=== PATIENT | male | born 1995 | race Two or more races ===

== ENCOUNTER → 2019-10-03 | Emergency (ER) | payer OTHER ==
[~2019-10-03] VITALS: Ht 170.2 cm; Wt 88.5 kg
[2019-10-03 14:24] VITALS: BP 128/63
== END | disposition home or self-care (01) ==
LOC: ER 12:37
DX: J18.9 Pneumonia, unspecified organism (principal); F41.9 Anxiety disorder, unspecified
CPT/HCPCS: 71045; 99283; J7030

== ENCOUNTER 2019-10-06 19:04 | Inpatient (IN) | payer OTHER ==
[~2019-10-06] VITALS: Ht 170.2 cm; Wt 86.2 kg
[2019-10-06] MEDS ORDERED: cefTRIAXone SOD 1,000 MG VL IM ONE (20:45)
[2019-10-06] MEDS ORDERED: methylPREDNISolone SOD SUCC 125 MG/2 ML VL IM ONE (20:45)
[2019-10-06] MEDS ORDERED: ACETAMINOPHEN 325 MG TAB PO ONE (20:45)
[2019-10-06] MEDS ORDERED: DOXYCYCLINE 100 MG TAB/CAP PO ONE (21:30)
[2019-10-06] MEDS ORDERED: ASCORBIC ACID 500 MG TAB PO ONE (21:30)
[2019-10-06] MEDS ORDERED: ALBUTEROL SULF 2.5 MG/0.5ML(0.5%) NEB SOLN NEB ONE (21:30)
[2019-10-06] MEDS ORDERED: IPRATROPIUM BROM 0.5 MG/2.5ML INH SOL NEB ONE (21:30)
[2019-10-06] MEDS ORDERED: ZINC SULFATE 220mg CAP or TAB PO ONE (21:30)
[2019-10-06 21:58] LABS: Basophils # (auto) 0 10 ^3/uL (0-0.2); Basophils % (auto) 0.1 % (0.0-2.0); Eosinophils # (auto) 0 10 ^3/uL (0-0.8); Hematocrit 45.7 % (41.0-53.0); Hemoglobin 15.1 g/dL (13.5-17.5); Lymphocytes # (auto) 0.7 10 ^3/uL (0.4-5.4); Lymphocytes % (auto) 4.4 % (10.0-50.0); Mean Corpuscular Hgb Conc. 32.9 g/dL (32.0-36.0); Mean Corpuscular Volume 94.1 fL (80.0-100.0); Monocytes # (auto) 0.4 10 ^3/uL (0-1.3); Monocytes % (auto) 2.6 % (0.0-12.0); Neutrophils # (auto) 15.7 10 ^3/uL (1.6-8.6); Neutrophils % (auto) 92.9 % (37.0-80.0); Nucleated Red Blood Cells % 0.1 %; Platelet Count (auto) 259 10^3/uL (140-450); Red Blood Cells 4.86 10^6/uL (4.5-5.90); Red Cell Distribution Width 13.7 % (11.8-14.3); White Blood Cell 16.9 10^3/uL (4.4-10.8)
[2019-10-06 22:14] LABS: Albumin 2.7 g/dL (3.4-5.0); Anion Gap 5 (5-15); Blood Urea Nitrogen 11 mg/dL (7-18); Calcium 8.9 mg/dL (8.5-10.1); Carbon Dioxide 24 mmol/L (21-32); Chloride 110 mmol/L (98-107); Glucose 162 mg/dL (74-106); Magnesium 2.6 mg/dL (1.6-2.6); Potassium 4.2 mmol/L (3.5-5.1); Sodium 139 mmol/L (136-145)
[2019-10-06 22:22] LABS: Alanine Aminotransferase 48 U/L (16-61); Alkaline Phosphatase 64 U/L (45-117); Aspartate Aminotransferase 34 U/L (15-37); BUN/Creatinine Ratio 10.8; Bilirubin, Total 0.6 mg/dL (0.2-1.0); GFR African American 114 mL/min; GFR Non-African American 94 mL/min; Lactate Dehydrogenase 391 U/L (87-241); Total Protein 8.1 g/dL (6.4-8.2)
[2019-10-06 22:26] LABS: CRP High Sensitivity > 19.0 mg/dL (< 0.3)
[2019-10-06 23:19] LABS: INR 1.19 (0.9-1.15); Partial Thromboplastin Time 28.8 sec (23.0-31.2)
[2019-10-06] MEDS ORDERED: SODIUM CHLORIDE 0.9% 1,000 ML IV SCH (23:27)
[2019-10-06] MEDS ORDERED: ACETAMINOPHEN 500 MG TAB PO PRN (23:30)
[2019-10-06] MEDS ORDERED: HYDROcodone-ACET 5/325MG TAB PO PRN (23:30)
[2019-10-06] MEDS ORDERED: LORazepam 0.5 MG TAB PO PRN (23:30)
[2019-10-06] MEDS ORDERED: MORPHINE SULF INJ 2 MG/ML SYRINGE 1ML IV PRN (23:30)
[2019-10-06] MEDS ORDERED: ONDANSETRON HCL 4 MG/2 ML VIAL IV PRN (23:30)
[2019-10-06] MEDS ORDERED: TEMAZEPAM 15 MG CAP PO PRN (23:30)
[2019-10-06] MEDS ORDERED: DOCUSATE SOD 100 MG CAP PO PRN (23:30)
[2019-10-06] MEDS ORDERED: DEXTROSE (50%) 50ML SYRG IV PRN (23:30)
[2019-10-06] MEDS ORDERED: ACETAMINOPHEN 325 MG TAB PO PRN (23:30)
[2019-10-07 00:55] LABS: Urine Bacteria NONE SEEN /hpf (None Seen); Urine Blood Negative /uL (Negative); Urine Mucus FEW (None Seen); Urine Specific Gravity 1.033 (1.001-1.035); Urine WBC 3 /hpf (0 - 3)
[2019-10-07 01:18] LABS: Alcohol, Urine < 3.0 mg/dL (0-10); Amphetamine Screen, Urine NEGATIVE (NEGATIVE); Barbiturate Scree,Urine NEGATIVE (NEGATIVE); Benzodiazephine Screen, Urine NEGATIVE (NEGATIVE); Cannabinoid Screen, Urine NEGATIVE (NEGATIVE); Cocaine Screen, Urine NEGATIVE (NEGATIVE); Opiate Scree,Urine NEGATIVE (NEGATIVE); Phencyclidine Screen, Urine NEGATIVE (NEGATIVE)
[2019-10-07 01:45] VITALS: BP 133/80
[2019-10-07 02:58] VITALS: BP 127/78
[2019-10-07 05:08] VITALS: BP 133/80
[2019-10-07 05:52] LABS: Basophils # (auto) 0 10 ^3/uL (0-0.2); Basophils % (auto) 0.1 % (0.0-2.0); Eosinophils # (auto) 0 10 ^3/uL (0-0.8); Hematocrit 42.9 % (41.0-53.0); Hemoglobin 14.1 g/dL (13.5-17.5); Lymphocytes # (auto) 0.8 10 ^3/uL (0.4-5.4); Lymphocytes % (auto) 5.9 % (10.0-50.0); Mean Corpuscular Volume 94.1 fL (80.0-100.0); Monocytes # (auto) 0.3 10 ^3/uL (0-1.3); Monocytes % (auto) 2.2 % (0.0-12.0); Neutrophils # (auto) 12.4 10 ^3/uL (1.6-8.6); Neutrophils % (auto) 91.8 % (37.0-80.0); Platelet Count (auto) 257 10^3/uL (140-450); Red Blood Cells 4.56 10^6/uL (4.5-5.90); Red Cell Distribution Width 13.5 % (11.8-14.3); White Blood Cell 13.5 10^3/uL (4.4-10.8)
[2019-10-07 06:00] LABS: Albumin 2.4 g/dL (3.4-5.0); BUN/Creatinine Ratio 19.2; Calcium 8.9 mg/dL (8.5-10.1); Magnesium 2.7 mg/dL (1.6-2.6); Potassium 4.5 mmol/L (3.5-5.1)
[2019-10-07] MEDS: ALBUTEROL SULF HFA 90MCG INH 200DOSE IN SCH ×3 (06:00→21:35)
[2019-10-07 06:03] LABS: Bilirubin, Total 0.4 mg/dL (0.2-1.0); Total Protein 7.2 g/dL (6.4-8.2)
[2019-10-07] MEDS: InsuLIN REG 1unit/0.01ml Soln (100units/ml) SC SCH ×2 (07:00→12:33)
[2019-10-07] MEDS: ACCU-CHEK COMFORT CURVE STRIP VI SCH ×4 (07:02→22:16)
[2019-10-07] MEDS ORDERED: ENOXAPARIN SOD 40 MG/0.4 ML SYRINGE SC SCH (10:00)
[2019-10-07] MEDS: ZINC SULFATE 220mg CAP or TAB PO SCH (11:25)
[2019-10-07] MEDS: DOXYCYCLINE 100 MG TAB/CAP PO SCH ×2 (11:26→22:16)
[2019-10-07] MEDS: ASCORBIC ACID 1,000 MG TAB PO SCH (11:26)
[2019-10-07] MEDS ORDERED: DexAMETHasone 4 MG TAB PO ONE (12:15)
[2019-10-07] MEDS ORDERED: FUROSEMIDE 40 MG/4 ML VIAL IV ONE (12:15)
[2019-10-07] MEDS ORDERED: POTASSIUM CHL 10 Meq TABLET PO ONE (12:15)
[2019-10-07 12:35] VITALS: BP 130/70
[2019-10-07] MEDS ORDERED: diphenhdrAMINE HCL 50 MG/1 ML VL IV ONE (15:45)
[2019-10-07] MEDS ORDERED: ACETAMINOPHEN 650 mg PER 20 mL UD PO ONE (15:45)
[2019-10-07] MEDS ORDERED: methylPREDNISolone SOD SUCC 40 MG/ML VL IV ONE (15:45)
[2019-10-07] MEDS ORDERED: TOCILIZUMAB 400 MG in SODIUM CHL 0.9% 80 ML IV ONE (16:00)
[2019-10-07 16:35] VITALS: BP 124/73
[2019-10-07] MEDS ORDERED: REMDESIVIR 200 MG in NS 210ml LOADING DOSE ADULT IV ONE (18:00)
[2019-10-07] MEDS: BUDESONIDE (INHALATION) 180 MCG IH IN SCH (21:35)
[2019-10-07 22:00] VITALS: BP 116/70
[2019-10-07] MEDS ORDERED: InsuLIN REG 1unit/0.01ml Soln (100units/ml) SC SCH (22:00)
[2019-10-07] MEDS: ENOXAPARIN SOD 100 MG/1 ML SYRINGE SC SCH (22:16)
[2019-10-08 05:39] VITALS: BP 122/79
[2019-10-08 06:01] LABS: Calcium 8.7 mg/dL (8.5-10.1); Potassium 4.2 mmol/L (3.5-5.1)
[2019-10-08 06:07] LABS: Albumin 2.5 g/dL (3.4-5.0); BUN/Creatinine Ratio 29.3; Bilirubin, Total 0.5 mg/dL (0.2-1.0); Total Protein 7.6 g/dL (6.4-8.2)
[2019-10-08] MEDS: ACCU-CHEK COMFORT CURVE STRIP VI SCH ×2 (06:42→12:05)
[2019-10-08] MEDS: ALBUTEROL SULF HFA 90MCG INH 200DOSE IN SCH ×3 (06:43→21:51)
[2019-10-08] MEDS ORDERED: methylPREDNISolone SOD SUCC 40 MG/ML VL IV ONE (07:45)
[2019-10-08] MEDS ORDERED: diphenhdrAMINE HCL 50 MG/1 ML VL IV ONE (07:45)
[2019-10-08] MEDS ORDERED: ACETAMINOPHEN 650 mg PER 20 mL UD PO ONE (07:45)
[2019-10-08] MEDS ORDERED: TOCILIZUMAB 400 MG in SODIUM CHL 0.9% 80 ML IV ONE (08:00)
[2019-10-08] MEDS: FUROSEMIDE 40 MG/4 ML VIAL IV SCH (08:59)
[2019-10-08 09:00] VITALS: BP 115/73
[2019-10-08] MEDS: DOXYCYCLINE 100 MG TAB/CAP PO SCH ×2 (09:00→23:14)
[2019-10-08] MEDS: ASCORBIC ACID 1,000 MG TAB PO SCH (09:00)
[2019-10-08] MEDS: ZINC SULFATE 220mg CAP or TAB PO SCH (09:00)
[2019-10-08] MEDS: ENOXAPARIN SOD 100 MG/1 ML SYRINGE SC SCH ×2 (09:00→23:14)
[2019-10-08] MEDS: POTASSIUM CHL 10 Meq TABLET PO SCH (09:01)
[2019-10-08] MEDS: DexAMETHasone 4 MG TAB PO SCH (09:01)
[2019-10-08] MEDS: BUDESONIDE (INHALATION) 180 MCG IH IN SCH ×2 (10:00→21:51)
[2019-10-08 12:46] VITALS: BP 111/65
[2019-10-08 17:00] VITALS: BP 107/79
[2019-10-08] MEDS ORDERED: REMDESIVIR 100mg in NS 230ml DAILYx4DAYS (NO VENT) IV SCH (17:00)
[2019-10-08 22:00] VITALS: BP 118/78
[2019-10-09 05:00] VITALS: BP 110/63
[2019-10-09] MEDS: ALBUTEROL SULF HFA 90MCG INH 200DOSE IN SCH ×3 (06:54→21:41)
[2019-10-09] MEDS: BUDESONIDE (INHALATION) 180 MCG IH IN SCH ×2 (06:55→21:41)
[2019-10-09 08:35] VITALS: BP 106/65
[2019-10-09 09:05] LABS: Basophils # (auto) 0 10 ^3/uL (0-0.2); Basophils % (auto) 0.2 % (0.0-2.0); Eosinophils # (auto) 0 10 ^3/uL (0-0.8); Eosinophils % (auto) 0.1 % (0.0-7.0); Hematocrit 45.3 % (41.0-53.0); Hemoglobin 15.1 g/dL (13.5-17.5); Lymphocytes # (auto) 2.6 10 ^3/uL (0.4-5.4); Mean Corpuscular Hemoglobin 31.3 pg (28.0-32.0); Mean Corpuscular Hgb Conc. 33.3 g/dL (32.0-36.0); Mean Corpuscular Volume 94.1 fL (80.0-100.0); Monocytes # (auto) 0.7 10 ^3/uL (0-1.3); Neutrophils # (auto) 6.8 10 ^3/uL (1.6-8.6); Neutrophils % (auto) 66.7 % (37.0-80.0); Nucleated Red Blood Cells % 0.1 %; Platelet Count (auto) 364 10^3/uL (140-450); Red Blood Cells 4.81 10^6/uL (4.5-5.90); Red Cell Distribution Width 13.2 % (11.8-14.3); White Blood Cell 10.2 10^3/uL (4.4-10.8)
[2019-10-09 09:25] LABS: Potassium 3.7 mmol/L (3.5-5.1)
[2019-10-09 09:34] LABS: Albumin 2.6 g/dL (3.4-5.0); BUN/Creatinine Ratio 33.8; Bilirubin, Total 0.6 mg/dL (0.2-1.0); Calcium 8.9 mg/dL (8.5-10.1); Total Protein 7.3 g/dL (6.4-8.2)
[2019-10-09] MEDS: ZINC SULFATE 220mg CAP or TAB PO SCH (10:21)
[2019-10-09] MEDS: FUROSEMIDE 40 MG/4 ML VIAL IV SCH (10:21)
[2019-10-09] MEDS: DOXYCYCLINE 100 MG TAB/CAP PO SCH ×2 (10:23→22:10)
[2019-10-09] MEDS: POTASSIUM CHL 10 Meq TABLET PO SCH (10:23)
[2019-10-09] MEDS: DexAMETHasone 4 MG TAB PO SCH (10:23)
[2019-10-09] MEDS: ASCORBIC ACID 1,000 MG TAB PO SCH (10:24)
[2019-10-09] MEDS: ENOXAPARIN SOD 100 MG/1 ML SYRINGE SC SCH ×2 (10:24→22:10)
[2019-10-09 13:00] VITALS: BP 100/64
[2019-10-09 17:00] VITALS: BP 109/64
[2019-10-09] MEDS ORDERED: REMDESIVIR 200 MG in NS 210ml LOADING DOSE ADULT IV ONE (17:00)
[2019-10-09 19:29] VITALS: BP 109/64
[2019-10-09 22:00] VITALS: BP 121/69
[2019-10-10] VITALS (8 sets, daily range): BP systolic 97–123; BP diastolic 51–74
[2019-10-10] MEDS: ALBUTEROL SULF HFA 90MCG INH 200DOSE IN SCH ×3 (07:10→21:50)
[2019-10-10] MEDS: BUDESONIDE (INHALATION) 180 MCG IH IN SCH ×2 (07:11→21:50)
[2019-10-10 07:33] LABS: Basophils # (auto) 0 10 ^3/uL (0-0.2); Basophils % (auto) 0.2 % (0.0-2.0); Eosinophils # (auto) 0 10 ^3/uL (0-0.8); Eosinophils % (auto) 0.2 % (0.0-7.0); Hematocrit 46.4 % (41.0-53.0); Hemoglobin 15.4 g/dL (13.5-17.5); Lymphocytes % (auto) 21.7 % (10.0-50.0); Mean Corpuscular Hemoglobin 31.4 pg (28.0-32.0); Mean Corpuscular Hgb Conc. 33.2 g/dL (32.0-36.0); Mean Corpuscular Volume 94.4 fL (80.0-100.0); Monocytes # (auto) 0.5 10 ^3/uL (0-1.3); Monocytes % (auto) 5.1 % (0.0-12.0); Neutrophils # (auto) 6.6 10 ^3/uL (1.6-8.6); Neutrophils % (auto) 72.8 % (37.0-80.0); Nucleated Red Blood Cells % 0.1 %; Platelet Count (auto) 364 10^3/uL (140-450); Red Blood Cells 4.91 10^6/uL (4.5-5.90); Red Cell Distribution Width 13.6 % (11.8-14.3); White Blood Cell 9.1 10^3/uL (4.4-10.8)
[2019-10-10 07:41] LABS: Potassium 3.9 mmol/L (3.5-5.1)
[2019-10-10 07:47] LABS: Albumin 2.7 g/dL (3.4-5.0); BUN/Creatinine Ratio 29.3; Bilirubin, Total 0.6 mg/dL (0.2-1.0); Calcium 8.7 mg/dL (8.5-10.1); Total Protein 7.2 g/dL (6.4-8.2)
[2019-10-10] MEDS: ZINC SULFATE 220mg CAP or TAB PO SCH (10:13)
[2019-10-10] MEDS: POTASSIUM CHL 10 Meq TABLET PO SCH (10:13)
[2019-10-10] MEDS: FUROSEMIDE 40 MG/4 ML VIAL IV SCH (10:13)
[2019-10-10] MEDS: DexAMETHasone 4 MG TAB PO SCH (10:13)
[2019-10-10] MEDS: DOXYCYCLINE 100 MG TAB/CAP PO SCH ×2 (10:13→21:44)
[2019-10-10] MEDS: ASCORBIC ACID 1,000 MG TAB PO SCH (10:14)
[2019-10-10] MEDS: ENOXAPARIN SOD 100 MG/1 ML SYRINGE SC SCH ×2 (10:14→21:44)
[2019-10-10] MEDS: REMDESIVIR 100mg in NS 230ml DAILYx4DAYS (NO VENT) IV SCH (17:05)
[2019-10-11 05:00] VITALS: BP 105/50
[2019-10-11] MEDS: ALBUTEROL SULF HFA 90MCG INH 200DOSE IN SCH ×3 (06:33→22:54)
[2019-10-11] MEDS: BUDESONIDE (INHALATION) 180 MCG IH IN SCH ×2 (06:33→22:54)
[2019-10-11 09:00] VITALS: BP 85/50
[2019-10-11] MEDS: FUROSEMIDE 40 MG/4 ML VIAL IV SCH (09:51)
[2019-10-11] MEDS: DexAMETHasone 4 MG TAB PO SCH (09:51)
[2019-10-11] MEDS: ZINC SULFATE 220mg CAP or TAB PO SCH (09:51)
[2019-10-11] MEDS: POTASSIUM CHL 10 Meq TABLET PO SCH (09:51)
[2019-10-11] MEDS: ASCORBIC ACID 1,000 MG TAB PO SCH (09:54)
[2019-10-11] MEDS: ENOXAPARIN SOD 100 MG/1 ML SYRINGE SC SCH ×2 (09:54→21:13)
[2019-10-11] MEDS: DOXYCYCLINE 100 MG TAB/CAP PO SCH ×2 (09:54→21:13)
[2019-10-11 13:00] VITALS: BP 96/57
[2019-10-11 16:33] VITALS: BP 122/67
[2019-10-11 16:36] VITALS: BP 110/62
[2019-10-11] MEDS: REMDESIVIR 100mg in NS 230ml DAILYx4DAYS (NO VENT) IV SCH (17:26)
[2019-10-11 22:11] VITALS: BP 102/56
[2019-10-12 05:11] VITALS: BP 101/58
[2019-10-12] MEDS: ALBUTEROL SULF HFA 90MCG INH 200DOSE IN SCH ×3 (06:40→22:11)
[2019-10-12] MEDS: BUDESONIDE (INHALATION) 180 MCG IH IN SCH ×2 (06:40→22:11)
[2019-10-12 06:51] LABS: Potassium 4.4 mmol/L (3.5-5.1)
[2019-10-12 06:59] LABS: Albumin 3.1 g/dL (3.4-5.0); BUN/Creatinine Ratio 29.5; Bilirubin, Total 0.7 mg/dL (0.2-1.0); Calcium 8.8 mg/dL (8.5-10.1); Total Protein 7.3 g/dL (6.4-8.2)
[2019-10-12 07:06] LABS: Hematocrit 48.9 % (41.0-53.0); Hemoglobin 16.1 g/dL (13.5-17.5); Mean Corpuscular Hemoglobin 30.9 pg (28.0-32.0); Mean Corpuscular Hgb Conc. 32.9 g/dL (32.0-36.0); Mean Corpuscular Volume 93.9 fL (80.0-100.0); Platelet Count (auto) 401 10^3/uL (140-450)
[2019-10-12 07:12] LABS: Band Neutrophils % (manual) 0; Basophils % (manual) 0 (0.0-2.0); Blast Cells 0; Metamyelocytes % 0; Myelocytes % 0; Promyelocytes % 0; Reactive Lymphocytes 0
[2019-10-12 07:35] LABS: Eosinophils % (manual) 1 (0-7); Lymphocytes % (manual) 22 (10.0-50.0); Monocytes % (manual) 4 (0-12)
[2019-10-12 09:00] VITALS: BP 89/43
[2019-10-12 09:09] VITALS: BP 107/58
[2019-10-12] MEDS: FUROSEMIDE 40 MG/4 ML VIAL IV SCH (10:00)
[2019-10-12] MEDS ORDERED: METH4PAK PO (10:16)
[2019-10-12] MEDS ORDERED: ALBUAER3 IN (10:16)
[2019-10-12] MEDS ORDERED: CHOL20007 PO (10:16)
[2019-10-12] MEDS ORDERED: ASCO10003 PO (10:16)
[2019-10-12] MEDS ORDERED: MULT-1018 PO (10:18)
[2019-10-12] MEDS ORDERED: ZINC220C10 PO (10:18)
[2019-10-12] MEDS: ZINC SULFATE 220mg CAP or TAB PO SCH (10:30)
[2019-10-12] MEDS: DexAMETHasone 4 MG TAB PO SCH (10:30)
[2019-10-12] MEDS: POTASSIUM CHL 10 Meq TABLET PO SCH (10:31)
[2019-10-12] MEDS: ENOXAPARIN SOD 100 MG/1 ML SYRINGE SC SCH ×2 (10:31→21:07)
[2019-10-12] MEDS: ASCORBIC ACID 1,000 MG TAB PO SCH (10:31)
[2019-10-12 13:00] VITALS: BP 127/71
[2019-10-12] MEDS: REMDESIVIR 100mg in NS 230ml DAILYx4DAYS (NO VENT) IV SCH (16:52)
[2019-10-12 22:00] VITALS: BP 111/68
[2019-10-13 02:28] VITALS: BP 111/63
[2019-10-13 05:55] VITALS: BP 100/62
[2019-10-13] MEDS: ALBUTEROL SULF HFA 90MCG INH 200DOSE IN SCH ×2 (06:22→14:05)
[2019-10-13] MEDS: BUDESONIDE (INHALATION) 180 MCG IH IN SCH (06:23)
[2019-10-13 07:58] VITALS: BP 107/58
[2019-10-13 09:00] VITALS: BP 108/60
[2019-10-13] MEDS: ZINC SULFATE 220mg CAP or TAB PO SCH (09:21)
[2019-10-13] MEDS: POTASSIUM CHL 10 Meq TABLET PO SCH (09:22)
[2019-10-13] MEDS: FUROSEMIDE 40 MG/4 ML VIAL IV SCH (09:22)
[2019-10-13] MEDS: ENOXAPARIN SOD 100 MG/1 ML SYRINGE SC SCH (09:22)
[2019-10-13] MEDS: DexAMETHasone 4 MG TAB PO SCH (09:22)
[2019-10-13] MEDS: ASCORBIC ACID 1,000 MG TAB PO SCH (09:23)
[2019-10-13 13:05] VITALS: BP 100/62
[2019-10-13] MEDS ORDERED: REMDESIVIR 100mg in NS 230ml DAILYx4DAYS (NO VENT) IV SCH (15:00)
== END 2019-10-13 16:46 | disposition home or self-care (01) | DRG 871 ==
LOC: ER 19:04 → OVERFLOW 19:05 → EAST 10-07 01:42
PROVIDERS: ADMIT Hospitalist; ATTEND Internal Medicine
PROC: XW033E5 Introduction of Remdesivir Anti-infective into Peripheral Vein, Percutaneous Approach, New Technology Group 5 (ICD-10-PCS; 2019-10-08)
PROC: 30233K1 Transfusion of Nonautologous Frozen Plasma into Peripheral Vein, Percutaneous Approach (ICD-10-PCS; principal; 2019-10-10)
DX: A41.89 Other specified sepsis (principal); E43 Unspecified severe protein-calorie malnutrition; J96.01 Acute respiratory failure with hypoxia; U07.1 COVID-19; J12.89 Other viral pneumonia; Z68.29 Body mass index [BMI] 29.0-29.9, adult
CPT/HCPCS: 36415; 36600; 71045; 80053; 80307; 81001; 82728; 82805; 82962; 83036; 83605; 83615; 83735; 84443; 84484; 85007; 85025; 85027; 85379; 85610; 85730; 86141; 86850; 86900; 86901; 87070; 87804; 87880; 93005; 94640; 96372; G0378; J0696; J1815

== ENCOUNTER 2019-10-30 12:19 | Emergency (ER) | payer OTHER ==
[~2019-10-30] VITALS: Ht 170.2 cm; Wt 88.5 kg
[~2019-10-30 12:19] MED LIST: ALBUAER3 IN; ASCO10003 PO; CHOL20007 PO; METH4PAK PO; MULT-1018 PO; ZINC220C10 PO
[2019-10-30 12:33] VITALS: BP 128/81
== END 2019-10-30 13:23 | disposition home or self-care (01) ==
LOC: ER 12:19
DX: R07.89 Other chest pain (principal); F17.210 Nicotine dependence, cigarettes, uncomplicated; Z79.899 Other long term (current) drug therapy
CPT/HCPCS: 71045